=== PATIENT | female | born 1960 | race African-American/Black ===

== ENCOUNTER 2023-05-01 09:46 | Outpatient (CLI) | payer BC | END 2023-05-01 09:47 | disposition home or self-care (01) | LOC: CSHMAMMO 09:46 | PROVIDERS: ATTEND Internal Medicine | DX: Z12.31 Encounter for screening mammogram for malignant neoplasm of breast (principal) | CPT/HCPCS: 77063; 77067 ==

== ENCOUNTER 2024-05-06 08:58 | Outpatient (CLI) | payer BC | END 2024-05-06 08:59 | disposition home or self-care (01) | LOC: CSHMAMMO 08:58 | PROVIDERS: ATTEND Internal Medicine | DX: Z12.31 Encounter for screening mammogram for malignant neoplasm of breast (principal) | CPT/HCPCS: 77063; 77067 ==

== ENCOUNTER 2025-05-13 08:09 | Outpatient (CLI) | payer BC | END 2025-05-13 08:10 | disposition home or self-care (01) | LOC: CSHMAMMO 08:09 | PROVIDERS: ATTEND Internal Medicine | DX: R92.8 Other abnormal and inconclusive findings on diagnostic imaging of breast (principal); R92.333 Mammographic heterogeneous density, bilateral breasts | CPT/HCPCS: 77066; G0279 ==